=== PATIENT | male | born 1985 | race African-American/Black ===

== ENCOUNTER 2022-02-23 01:28 | Inpatient (IN) | payer OTHER ==
[~2022-02-23] VITALS: Ht 160 cm; Wt 78.9 kg
[2022-02-23 01:52] LABS: HEMATOCRIT. 42.1 % (42.0-52.0); HEMOGLOBIN. 14.2 g/dL (14.0-18.0); MEAN CORPUSCULAR HEMOGLOBIN 31.7 pg (28.0-32.0); MEAN CORPUSCULAR VOLUME 93.9 fL (80.0-94.0); MEAN PLATELET VOLUME 7.9 fl (7.4-10.4); PLATELET 252 x1000/uL (130-400); RED BLOOD CELL COUNT 4.48 mill/uL (4.7-6.1); RED CELL DISTRIBUTION WIDTH 15.9 % (11.6-14.6)
[2022-02-23] MEDS ORDERED: AZITHROMYCIN 500 MG in DEXT 5% WATER 250 ML IV NR (02:00)
[2022-02-23] MEDS ORDERED: CEFTRIAXONE 1 G PREMIX 50 ML IV NR (02:00)
[2022-02-23] MEDS ORDERED: FUROSEMIDE 40MG/4ML VIAL IVP NR ×2 (02:00→13:00)
[2022-02-23 02:11] LABS: CHLORIDE 106 mEq/L (98-107)
[2022-02-23 02:21] LABS: CLARITY URINE CLEAR (CLEAR); COLOR URINE YELLOW (YELLOW); KETONES URINE TRACE (NEGATIVE); LEUKOCYTE ESTERASE URINE NEGATIVE (NEGATIVE); NITRITE URINE NEGATIVE (NEGATIVE); OCCULT BLOOD URINE NEGATIVE (NEGATIVE); PH URINE 5.5 (4.5-8.0); PROTEIN URINE TRACE (NEGATIVE); SPECIFIC GRAVITY URINE 1.019 (1.005-1.030); UROBILINOGEN URINE 0.2 E.U./dL (0.2-1.0)
[2022-02-23 02:23] LABS: PLATELET ESTIMATE NORMAL
[2022-02-23 09:28] VITALS: BP 123/80
[2022-02-23 09:44] VITALS: BP 123/80
[2022-02-23] MEDS ORDERED: LEVA15HF6 IH (10:13)
[2022-02-23] MEDS ORDERED: PRED10TA23 PO (10:13)
[2022-02-23] MEDS ORDERED: ONDA4TAB50 PO (10:13)
[2022-02-23] MEDS ORDERED: GUAI600T26 PO (10:13)
[2022-02-23] MEDS ORDERED: SULF1TAB47 MT (10:13)
[2022-02-23] MEDS ORDERED: IPRA3AMP31 IH (10:13)
[2022-02-23] MEDS ORDERED: PROT40 PO (10:13)
[2022-02-23] MEDS ORDERED: ALBU4TAB6 PO (10:13)
[2022-02-23] MEDS ORDERED: ZOLPIDEM TARTRATE 5MG TABLET PO PRN (10:15)
[2022-02-23] MEDS ORDERED: IPRATROPIUM/ALBUTEROL 0.5-3(2.5)MG/3ML NEB HHN PRN (10:15)
[2022-02-23] MEDS ORDERED: DEXT 5%/0.45% NACL 1000ML 1,000 ML IV SCH (10:15)
[2022-02-23] MEDS ORDERED: CLONIDINE 0.1MG TABLET PO PRN (10:15)
[2022-02-23] MEDS ORDERED: ACETAMINOPHEN 325MG TABLET PO PRN ×2 (10:15)
[2022-02-23] MEDS: ENOXAPARIN 40MG/0.4ML SYR SUBCUT SCH (10:56)
[2022-02-23 12:01] VITALS: BP 96/56
[2022-02-23] MEDS: LEVOFLOXACIN 500MG PREMIX 100 ML IV SCH (12:12)
[2022-02-23] MEDS ORDERED: METHYLPREDNISOLONE SOD SUCC 125 MG/2 ML VIAL IV NR (13:00)
[2022-02-23] MEDS: GUAIFENESIN 600MG ER TABLET PO SCH ×2 (13:23→21:42)
[2022-02-23] MEDS: ONDANSETRON HCL 4MG/2ML INJ IV PRN (13:24)
[2022-02-23 14:15] LABS: BG BASE EXCESS 2.6 mmol/L (-2.0-2.0); BG CARBOXYHEMOGLOBIN 0.9 % (0.5-1.5); BG DEOXYHEMOGLOBIN 4.9 % (0.0-5.0); BG FRACTION INSPIRED OXYGEN 100; BG HCO3 ACT 26.7 mmol/L (22.0-26.0); BG METHEMOGLOBIN 0.3 % (0.0-1.5); BG OXYHEMOGLOBIN 93.9 % (94.0-97.0); BG PCO2 39.7 mmHg (35.0-45.0); BG PH 7.446 (7.350-7.450); BG PO2 76.5 mmHg (75.0-100.0); BG SAMPLE SITE RIGHT BRACHIAL; BG TOTAL HEMOGLOBIN 17.5 g/dL (12.0-18.0); BG VENT MODE MASK - NRB
[2022-02-23] MEDS: IPRATROPIUM/ALBUTEROL 0.5-3(2.5)MG/3ML NEB HHN SCH ×2 (15:00→20:41)
[2022-02-23] MEDS ORDERED: MUC103 INH (16:13)
[2022-02-23 16:43] VITALS: BP 114/78
[2022-02-23 20:00] VITALS: BP 111/81
[2022-02-23] MEDS: ACETYLCYSTEINE 100MG/ML 10% VIAL 4ML INH SCH (21:44)
[2022-02-24] VITALS: BP 138/86
[2022-02-24] MEDS: IPRATROPIUM/ALBUTEROL 0.5-3(2.5)MG/3ML NEB HHN SCH ×4 (01:44→21:11)
[2022-02-24] MEDS: ACETYLCYSTEINE 100MG/ML 10% VIAL 4ML INH SCH ×3 (01:44→16:29)
[2022-02-24 04:00] VITALS: BP 110/68
[2022-02-24 07:59] VITALS: BP 108/60
[2022-02-24] MEDS: ENOXAPARIN 40MG/0.4ML SYR SUBCUT SCH (08:10)
[2022-02-24] MEDS: GUAIFENESIN 600MG ER TABLET PO SCH ×2 (08:10→23:10)
[2022-02-24 11:30] VITALS: BP 130/65
[2022-02-24] MEDS: LEVOFLOXACIN 500MG PREMIX 100 ML IV SCH (12:51)
[2022-02-24] MEDS: ONDANSETRON HCL 4MG/2ML INJ IV PRN ×2 (12:54→20:01)
[2022-02-24 16:41] VITALS: BP 116/68
[2022-02-24] MEDS: FUROSEMIDE 20MG/2ML VIAL IVP SCH (17:05)
[2022-02-24 20:00] VITALS: BP 122/79
[2022-02-25] VITALS: BP 102/60
[2022-02-25 04:00] VITALS: BP 103/67
[2022-02-25 08:40] VITALS: BP 125/82
[2022-02-25] MEDS: ENOXAPARIN 40MG/0.4ML SYR SUBCUT SCH (08:47)
[2022-02-25] MEDS: FUROSEMIDE 20MG/2ML VIAL IVP SCH (08:47)
[2022-02-25] MEDS: GUAIFENESIN 600MG ER TABLET PO SCH ×2 (08:47→21:15)
[2022-02-25 09:03] LABS: BG CARBOXYHEMOGLOBIN 0.4 % (0.5-1.5); BG DEOXYHEMOGLOBIN 3.8 % (0.0-5.0); BG FRACTION INSPIRED OXYGEN 100; BG HCO3 ACT 26.8 mmol/L (22.0-26.0); BG METHEMOGLOBIN 0.3 % (0.0-1.5); BG OXYGEN SATURATION 96.2 % (92.0-98.5); BG OXYHEMOGLOBIN 95.5 % (94.0-97.0); BG PCO2 38.4 mmHg (35.0-45.0); BG PH 7.462 (7.350-7.450); BG PO2 86.6 mmHg (75.0-100.0); BG SAMPLE SITE RIGHT RADIAL; BG TOTAL HEMOGLOBIN 15.9 g/dL (12.0-18.0); BG VENT MODE MASK - NRB
[2022-02-25] MEDS: IPRATROPIUM/ALBUTEROL 0.5-3(2.5)MG/3ML NEB HHN SCH ×4 (10:00→21:25)
[2022-02-25] MEDS: ACETYLCYSTEINE 100MG/ML 10% VIAL 4ML INH SCH ×2 (10:00)
[2022-02-25 11:45] VITALS: BP 109/80
[2022-02-25] MEDS: LEVOFLOXACIN 500MG PREMIX 100 ML IV SCH (12:52)
[2022-02-25] MEDS: ONDANSETRON HCL 4MG/2ML INJ IV PRN (15:27)
[2022-02-25 16:08] VITALS: BP 140/70
[2022-02-25] MEDS ORDERED: SENNOSIDES 8.6MG TABLET PO PRN (19:30)
[2022-02-25 20:00] VITALS: BP 113/62
[2022-02-26] VITALS: BP 98/52
[2022-02-26] MEDS: ACETYLCYSTEINE 100MG/ML 10% VIAL 4ML INH SCH ×4 (01:14→21:57)
[2022-02-26] MEDS: IPRATROPIUM/ALBUTEROL 0.5-3(2.5)MG/3ML NEB HHN SCH ×4 (01:14→21:57)
[2022-02-26 04:00] VITALS: BP 117/62
[2022-02-26 08:00] VITALS: BP 127/75
[2022-02-26] MEDS: ENOXAPARIN 40MG/0.4ML SYR SUBCUT SCH (08:00)
[2022-02-26] MEDS: FUROSEMIDE 20MG/2ML VIAL IVP SCH (08:01)
[2022-02-26] MEDS: GUAIFENESIN 600MG ER TABLET PO SCH ×2 (08:04→20:40)
[2022-02-26 12:00] VITALS: BP 121/78
[2022-02-26] MEDS: LEVOFLOXACIN 500MG PREMIX 100 ML IV SCH (12:36)
[2022-02-26] MEDS: GUAIFENESIN 200MG/10ML SUGAR FREE UDC PO PRN ×2 (13:01→22:40)
[2022-02-26 16:00] VITALS: BP 119/79
[2022-02-26 17:18] LABS: CHLORIDE 94 mEq/L (98-107)
[2022-02-26 18:17] LABS: HEMATOCRIT. 44.3 % (42.0-52.0); HEMOGLOBIN. 15.5 g/dL (14.0-18.0); MEAN CORPUSCULAR HEMOGLOBIN 32.2 pg (28.0-32.0); MEAN CORPUSCULAR VOLUME 91.8 fL (80.0-94.0); MEAN PLATELET VOLUME 7.9 fl (7.4-10.4); PLATELET 292 x1000/uL (130-400); RED BLOOD CELL COUNT 4.82 mill/uL (4.7-6.1); RED CELL DISTRIBUTION WIDTH 15.3 % (11.6-14.6)
[2022-02-26] MEDS ORDERED: POTASSIUM CHLORIDE 20MEQ TABLET SR PO NR ×2 (19:45→22:00)
[2022-02-26] MEDS ORDERED: MYCO500T PO (19:50)
[2022-02-26 20:00] VITALS: BP 101/58
[2022-02-26 23:16] LABS: PLATELET ESTIMATE NORMAL
[2022-02-27] VITALS: BP 120/75
[2022-02-27] MEDS: IPRATROPIUM/ALBUTEROL 0.5-3(2.5)MG/3ML NEB HHN SCH ×3 (01:06→14:10)
[2022-02-27 04:03] VITALS: BP 109/74
[2022-02-27 08:00] VITALS: BP 100/57
[2022-02-27] MEDS: FUROSEMIDE 20MG/2ML VIAL IVP SCH (08:20)
[2022-02-27] MEDS: GUAIFENESIN 600MG ER TABLET PO SCH ×2 (08:20→21:16)
[2022-02-27] MEDS: ENOXAPARIN 40MG/0.4ML SYR SUBCUT SCH (08:21)
[2022-02-27] MEDS: ACETYLCYSTEINE 100MG/ML 10% VIAL 4ML INH SCH ×3 (08:40→20:32)
[2022-02-27] MEDS ORDERED: POTASSIUM CHLORIDE 20MEQ TABLET SR PO SCH (10:30)
[2022-02-27] MEDS: LEVOFLOXACIN 500MG PREMIX 100 ML IV SCH (11:19)
[2022-02-27 12:00] VITALS: BP 101/59
[2022-02-27 16:00] VITALS: BP 98/60
[2022-02-27] MEDS ORDERED: POTASSIUM CHLORIDE 20MEQ TABLET SR PO NR (17:15)
[2022-02-27] MEDS: POTASSIUM CHLORIDE 20MEQ TABLET SR PO SCH (17:45)
[2022-02-27 20:00] VITALS: BP 86/59
[2022-02-27] MEDS: IPRATROPIUM BROMIDE (0.02%) 0.5MG/2.5ML NEB HHN SCH (20:32)
[2022-02-28] VITALS: BP 102/65
[2022-02-28] MEDS: IPRATROPIUM BROMIDE (0.02%) 0.5MG/2.5ML NEB HHN SCH ×4 (01:03→20:59)
[2022-02-28 04:00] VITALS: BP 101/50
[2022-02-28 06:15] LABS: CHLORIDE 97 mEq/L (98-107)
[2022-02-28 06:25] LABS: PHOSPHORUS 3.5 mg/dL (2.5-4.9)
[2022-02-28] MEDS: ACETYLCYSTEINE 100MG/ML 10% VIAL 4ML INH SCH ×3 (07:59→20:59)
[2022-02-28 08:00] VITALS: BP 100/63
[2022-02-28] MEDS: FUROSEMIDE 20MG/2ML VIAL IVP SCH (08:15)
[2022-02-28] MEDS: GUAIFENESIN 600MG ER TABLET PO SCH ×2 (08:15→20:47)
[2022-02-28] MEDS: POTASSIUM CHLORIDE 20MEQ TABLET SR PO SCH ×2 (08:16→16:41)
[2022-02-28] MEDS: ENOXAPARIN 40MG/0.4ML SYR SUBCUT SCH (08:16)
[2022-02-28] MEDS: LEVOFLOXACIN 500MG PREMIX 100 ML IV SCH (11:47)
[2022-02-28 12:00] VITALS: BP 97/61
[2022-02-28 16:00] VITALS: BP 101/68
[2022-02-28 20:00] VITALS: BP 105/60
[2022-03-01] VITALS: BP 105/87
[2022-03-01] MEDS: IPRATROPIUM BROMIDE (0.02%) 0.5MG/2.5ML NEB HHN SCH ×5 (02:10→20:57)
[2022-03-01 04:00] VITALS: BP 118/67
[2022-03-01 07:11] LABS: CHLORIDE 92 mEq/L (98-107)
[2022-03-01 08:00] VITALS: BP 89/52
[2022-03-01] MEDS: POTASSIUM CHLORIDE 20MEQ TABLET SR PO SCH ×2 (08:40→17:52)
[2022-03-01] MEDS: GUAIFENESIN 600MG ER TABLET PO SCH ×2 (08:40→20:52)
[2022-03-01] MEDS: ENOXAPARIN 40MG/0.4ML SYR SUBCUT SCH (08:41)
[2022-03-01 12:00] VITALS: BP 131/71
[2022-03-01 16:00] VITALS: BP 119/75
[2022-03-01 20:00] VITALS: BP 100/56
[2022-03-02] VITALS (7 sets, daily range): BP systolic 101–114; BP diastolic 55–82
[2022-03-02] MEDS: IPRATROPIUM BROMIDE (0.02%) 0.5MG/2.5ML NEB HHN SCH ×4 (02:36→20:51)
[2022-03-02] MEDS: ENOXAPARIN 40MG/0.4ML SYR SUBCUT SCH (09:37)
[2022-03-02] MEDS: POTASSIUM CHLORIDE 20MEQ TABLET SR PO SCH ×2 (09:37→17:30)
[2022-03-02] MEDS: GUAIFENESIN 600MG ER TABLET PO SCH ×2 (09:38→20:18)
[2022-03-02 16:29] LABS: CHLORIDE 101 mEq/L (98-107)
[2022-03-02] MEDS: GUAIFENESIN 200MG/10ML SUGAR FREE UDC PO PRN (19:50)
[2022-03-03] MEDS: IPRATROPIUM BROMIDE (0.02%) 0.5MG/2.5ML NEB HHN SCH ×3 (01:20→21:35)
[2022-03-03 04:00] VITALS: BP 96/60
[2022-03-03 08:00] VITALS: BP 112/70
[2022-03-03] MEDS: ENOXAPARIN 40MG/0.4ML SYR SUBCUT SCH (09:16)
[2022-03-03] MEDS: GUAIFENESIN 600MG ER TABLET PO SCH ×2 (09:17→20:15)
[2022-03-03] MEDS: POTASSIUM CHLORIDE 20MEQ TABLET SR PO SCH (09:17)
[2022-03-03 12:00] VITALS: BP 114/73
[2022-03-03] MEDS ORDERED: POTASSIUM CHLORIDE 20MEQ/PACKET PO SCH (14:30)
[2022-03-03 16:00] VITALS: BP 103/63
[2022-03-03] MEDS: POTASSIUM CHLORIDE 20MEQ/PACKET PO SCH (17:00)
[2022-03-03] MEDS: GUAIFENESIN 200MG/10ML SUGAR FREE UDC PO PRN (17:04)
[2022-03-03 20:00] VITALS: BP 117/69
[2022-03-04] VITALS (7 sets, daily range): BP systolic 99–120; BP diastolic 49–72
[2022-03-04] MEDS: GUAIFENESIN 200MG/10ML SUGAR FREE UDC PO PRN (02:12)
[2022-03-04] MEDS: IPRATROPIUM BROMIDE (0.02%) 0.5MG/2.5ML NEB HHN SCH ×4 (02:28→21:25)
[2022-03-04] MEDS: ENOXAPARIN 40MG/0.4ML SYR SUBCUT SCH (08:42)
[2022-03-04] MEDS: POTASSIUM CHLORIDE 20MEQ/PACKET PO SCH ×3 (08:42→17:00)
[2022-03-04] MEDS: GUAIFENESIN 600MG ER TABLET PO SCH ×2 (08:42→20:36)
== END 2022-03-04 21:47 | disposition short-term general hospital (02) | DRG 189 ==
LOC: ER 01:42 → 8WST 03:15
PROVIDERS: ADMIT Internal Medicine; ATTEND Internal Medicine
DX: J96.21 Acute and chronic respiratory failure with hypoxia (principal); J18.9 Pneumonia, unspecified organism; C34.90 Malignant neoplasm of unspecified part of unspecified bronchus or lung; E87.1 Hypo-osmolality and hyponatremia; Z20.822 Contact with and (suspected) exposure to COVID-19; E87.70 Fluid overload, unspecified; E87.6 Hypokalemia; R00.0 Tachycardia, unspecified; Z99.81 Dependence on supplemental oxygen; Z51.11 Encounter for antineoplastic chemotherapy; Z85.9 Personal history of malignant neoplasm, unspecified
CPT/HCPCS: 36415; 36600; 71045; 80048; 80051; 80053; 81003; 82375; 82805; 83605; 83735; 83880; 84100; 84145; 84484; 85025; 85379; 87070; 87426; 87804; 93005; 93970; 94640; 94667; 97162; 99291; C9803; J0456; J0696; J1650; J1940; J1956; J2405; J2930; J7060; J7608